=== PATIENT | female | born 1970 | race Caucasian/White ===

== ENCOUNTER 2019-03-22 15:03 | Emergency (ER) | payer MEDICAID ==
[~2019-03-22] VITALS: Ht 167.6 cm; Wt 120.5 kg
[~2019-03-22 15:03] MED LIST: ALBU18HF2 INH; AMLO2.5T2 PO; BACL10TA PO; BECL8.7A7 INH; BUPR1PAT TOP; BUTA-281 PO; CETI-102 PO; DICL100G15 TOP; DOXY100C43 PO; DULO-31 PO; FLUT16SP2 BOTHNARES; GABA-532 PO; LISI-600 PO; MONT10TA21 PO; ONDA4TAB6 PO; PER10325T PO; TIZA4CAP PO
[2019-03-22 15:10] VITALS: BP 206/109
[2019-03-22] MEDS ORDERED: BUPIVAcaine 0.5% W/EPI /PF 30ml vial SQ STA ×2 (15:23→15:26)
[2019-03-22] MEDS ORDERED: ketorolac tromethamine 15mg/ml inj. IM ONE (15:30)
== END 2019-03-22 16:32 | disposition home or self-care (01) ==
LOC: ER 15:03
DX: K08.89 Other specified disorders of teeth and supporting structures (principal); I10 Essential (primary) hypertension; J45.909 Unspecified asthma, uncomplicated; E11.9 Type 2 diabetes mellitus without complications; G89.29 Other chronic pain; Z90.49 Acquired absence of other specified parts of digestive tract; Z90.710 Acquired absence of both cervix and uterus; Z90.89 Acquired absence of other organs; Z98.890 Other specified postprocedural states; Z88.1 Allergy status to other antibiotic agents; Z88.5 Allergy status to narcotic agent; Z88.8 Allergy status to other drugs, medicaments and biological substances; Z79.899 Other long term (current) drug therapy
CPT/HCPCS: 64400; 96372; 99284; J1885

== ENCOUNTER 2019-04-22 00:18 | Emergency (ER) | payer MEDICAID ==
[~2019-04-22] VITALS: Ht 167.6 cm; Wt 117.5 kg
[~2019-04-22 00:18] MED LIST changes: -DOXY100C43 PO
[2019-04-22 00:26] VITALS: BP 143/98
--- NOTE | 2019-04-22 00:51 | NUR ---
DR. JUAREZ MADE AWARE OF THIS PT AND WILL SEE HER SHORTLY. NO PROTOCOLS ORDERED.
[2019-04-22] MEDS ORDERED: acetaminophen 325mg tablet PO ONE (01:10)
[2019-04-22] MEDS ORDERED: ibuprofen tablet 400 MG TABLET PO ONE (01:10)
[2019-04-22 01:49] LABS: D-DIMER 0.35 MG/L FEU (0-0.50)
[2019-04-22] MEDS ORDERED: clindamycin 150mg capsule PO ONE (02:05)
[2019-04-22] MEDS ORDERED: CLIN150C8 PO (02:09)
== END 2019-04-22 02:29 | disposition home or self-care (01) ==
LOC: ER 00:19
DX: M54.2 Cervicalgia (principal); H66.93 Otitis media, unspecified, bilateral; R60.0 Localized edema; K08.89 Other specified disorders of teeth and supporting structures; I10 Essential (primary) hypertension; J45.909 Unspecified asthma, uncomplicated; E11.9 Type 2 diabetes mellitus without complications; G89.29 Other chronic pain; Z86.14 Personal history of Methicillin resistant Staphylococcus aureus infection; Z90.49 Acquired absence of other specified parts of digestive tract; Z90.710 Acquired absence of both cervix and uterus; Z98.890 Other specified postprocedural states; Z88.5 Allergy status to narcotic agent; Z88.1 Allergy status to other antibiotic agents; Z88.8 Allergy status to other drugs, medicaments and biological substances; Z79.899 Other long term (current) drug therapy; Z91.048 Other nonmedicinal substance allergy status
CPT/HCPCS: 36415; 85379; 99284